=== PATIENT | female | born 1990 | race Asian ===

== ENCOUNTER 2024-04-09 06:25 | Day surgery (SDC) | payer MEDICAID, SELFPAY ==
[2024-04-08 09:44] LABS: Basophils % (Auto) 1 % (0-2.5); Eosinophils # (Auto) 0.2 Thou/mm3 (0.0-0.5); Eosinophils % (Auto) 4 % (0-10); Hematocrit 40.2 % (36.0-46.0); Hemoglobin 13.4 g/dL (12.0-16.0); Immature Granulocytes % (Auto) 0 % (0-0); Immature Granulocytes Auto 0.01 Thou/mm3 (0.00-0.00); Lymphocytes # (Auto) 1.6 Thou/mm3 (1.0-4.8); Lymphocytes % (Auto) 26 % (10-50); Mean Corpuscular HGB Conc 33.3 g/dl (31.0-37.0); Mean Corpuscular Hemoglobin 29.2 pg (25.0-35.0); Mean Corpuscular Volume 88 fL (80-100); Monocytes # (Auto) 0.5 Thou/mm3 (0.0-0.8); Monocytes % (Auto) 9 % (0-12); Neutrophils # (Auto) 3.6 Thou/mm3 (1.8-7.7); Neutrophils % (Auto) 61 % (37-80); Nucleated Red Blood Cell % 0 /100 WBC (0); Platelet Count 283 Thou/mm3 (140-440); RDW Standard Deviation 39.7 fL (36.4-46.3); Red Blood Count 4.59 Miln/mm3 (4.00-5.20)
[2024-04-08 10:10] LABS: Alanine Aminotransferase 14 U/L (10-49); Albumin, Serum 4.6 gm/dL (3.5-5.0); Albumin/Globulin Ratio 1.8 (1.2-2.2); Alkaline Phosphatase 47 U/L (46-116); Anion Gap 7 (7-16); Aspartate Amino Transferase 14 U/L (0-34); BUN/Creatinine Ratio 16 Ratio (12-20); Bilirubin,Total 0.8 mg/dL (0.3-1.2); Blood Urea Nitrogen 11 mg/dL (9-23); Calcium 9.3 mg/dL (8.3-10.6); Calcium (Corrected) 9.3 mg/dL (8.5-10.1); Carbon Dioxide 28.1 mMol/L (20.0-31.0); Chloride 103 mMol/L (98-107); Creatinine (Component) 0.7 mg/dL (0.6-1.3); Globulin 2.6 gm/dL (2.3-3.5); Glucose 110 mg/dL (74-106); Osmolality,Calculated 276 (275-295); Sodium 138 mMol/L (136-145); Total Protein 7.2 gm/dL (5.7-8.2); eGFR > 60 See Note
[2024-04-09] VITALS (10 sets, daily range): BP systolic 108–141; BP diastolic 60–89; PULSE 62–99; RESP 10–20; TEMP 36.3–36.7; O2SAT 96–100; BMI 30.2
[2024-04-09] MEDS: RINGERS LACTATED 1000 ML 1,000 ML 20 ML IV (07:14)
--- NOTE | 2024-04-09 09:35 | ESOP_ITS ---
Date of Procedure 04/09/24 Pre Op Diagnosis Symptomatic cholelithiasis Post Op Diagnosis Cholelithiasis with cholecystitis Procedure Laparoscopic cholecystectomy Findings Moderately distended gallbladder with gallstones and chronic cholecystitis Procedure Description Patient was brought into the operating room in supine position. After adm inistration of general endotracheal anesthesia abdomen was prepped and draped in standard surgical manner. A Veress needle was inserted through the umbilicus and pneumoperitoneum was obtained up to 15 mmHg. The Veress needle was then removed, a 5 mm infraumbilical incision was made and the 5mm trocar was inserted. Laparoscopic camera was placed. Under direct visualization a laparoscopic camera a 10 mm trocar was placed in subxiphoid and two 5 mm trocars placed in right upper quadrant. The gallbladder was identified and was noted to be moderately distended with gallstones and chronic cholecystitis. It was retracted cephalad and laterally. Dissection started near the infundibulum of gallbladder where cystic duct and gallbladder junction clearly identified. The cystic duct was circumferentially dissected off the peritoneum and surrounding inflammatory tissue. The critical view of safety was clearly demonstrated. Cystic duct was then divided between 2 endoclips proximally and one distally. The cystic artery was similarly dissected and divided. The gallbladder was then from the liver bed using electrocautery. The gallbladder was then placed inside an Endo Catch and removed from the abdomen utilizing subxiphoid trocar site. The area was copiously and thoroughly washed and irrigated, all the fluid was suctioned and the suction fluid returned clear. Hemostasis achieved using electrocautery. Endoclips noted be in place and intact without any bleeding or any leakage. Hemostasis was adequate and satisfactory. The subxiphoid trocar sites fascial defect was closed with 0 Vicryl using Endo Closure device. Instruments and trocars removed, pneumoperitoneum was evacuated and the incisions closed with 4-0 Monocryl in subcuticular fashion. Instrument needle and sponge counts were all reported to be correct X2. Patient tolerated the procedure well, was extubated, breathing spontaneously and without difficulty and was transferred to postanesthesia care in stable condition. Anesthesia GETA and local Pathology / specimen Other (Gallbladder and contents) Estimated Blood Loss 10 Condition Stable Disposition PACU Surgeon Alethea Gomez MD Surgical Staff Operation Date: 04/09/24 08:45 Case Staff [employer] SUPERVISOR: Salvador Garsia RN First Assistant: Audrey Melgar
--- NOTE | 2024-04-09 10:04 | SUR.PHASEI ---
0946: Pt received in [facility] via [facility]. Report from Bernadine Burton CRNA, RN. Pt obtunded. Resp even, unlabored. VS stable. Surgical sites x4 to abdomen secured with dermabond and no dressing. Sites dry, clean, intact with no swelling, hematoma.
--- NOTE | 2024-04-09 10:14 | SUR.PHASEI ---
1014: Pt has been resting with no complaints voiced. Resp even, unlabored. VS stable. Surgical sites x4 remain dry, clean, intact with no swelling, hematoma. States she has very little pain.
[2024-04-09] MEDS: ONDANSETRON INJ 2 MG/ML INJ 2 ML 4 MG IV (10:47)
--- NOTE | 2024-04-09 11:26 | SUR.PHASEII ---
1030: Pt awake, alert. Resp even, unlabored. VS stable. Surgical site remains dry, clean, intact with no swelling, hematoma. Denies pain. Sitting up tolerating po fluids with no difficulty swallowing and no n/v. 1047: Pt had c/o nausea. Zofran given per order. 1055: Pt stated nausea subsiding. 1106: Pt fully awake, oriented x3. Pt dressed. Assisted to transport chair. Ambulation steady. Pt and stated understanding of discharge instructions. Pt also instructed to tack picker her prescription at [facility]. Pt discharged from [facility] in stable condition.
== END 2024-04-09 11:06 | disposition home or self-care (01) ==
PROVIDERS: PCP Nurse Practitioner Family; Referring Provider Surgery; Visit Provider Surgery
PROC: 0FT44ZZ Resection of Gallbladder, Percutaneous Endoscopic Approach (ICD-10-PCS; CPT 47562; principal; 2024-04-09 08:30)
DX: K80.10 Calculus of gallbladder with chronic cholecystitis without obstruction (principal)
CPT/HCPCS: 47562; 36415; 80053; 85025; A4217; A4649; J0131; J0694; J1885; J2250; J2405; J2704; J3010; J3490; J7120; J1596

== ENCOUNTER 2024-07-03 10:21 | Outpatient (AMB) | payer MEDICAID, SELFPAY ==
[2024-07-03 10:34] VITALS: BP 111/78; PULSE 86; RESP 18; TEMP 36.6; O2SAT 97; BMI 30.2
--- NOTE | 2024-07-03 10:34 | ACNOTE_ITS ---
Vital Signs 07/03/24 10:34 Height 1.57 m Height Method Stated Weight 74.899 kg Weight Measurement Method Standing Scale BMI 30.2 BP 111/78 Blood Pressure Source Automatic Cuff Blood Pressure Location Left Upper Arm Position Sitting Respiration 18 Pulse 86 Pulse Source Monitor Temp 97.9 F Temp Source Temporal Artery Scan Pulse Oximetry (%) 97 Oxygen Delivery Method Room Air Allergies/Meds Allergies & Medications Allergies No Known Allergies Allergy (Verified 07/03/24 11:14) Medication Reconciliation cetirizine 10 mg capsule (Zyrtec) 10 mg PO QDAY PRN Allergic Symptoms 02/06/23 [History Confirmed 07/03/24] meloxicam 7.5 mg tablet 7.5 mg PO QDAY #45 tabs 03/20/24 [Rx Confirmed 07/03/24] docusate sodium 100 mg capsule (Stool Softener) 100 mg PO QDAY 04/08/24 [History Confirmed 07/03/24] ibuprofen 600 mg tablet 600 mg PO Q6H PRN Pain 04/08/24 [History Confirmed 07/03/24] docusate sodium 100 mg capsule (Colace) 100 mg PO BID #40 caps 04/09/24 [Rx Confirmed 07/03/24] hydrocodone 5 mg-acetaminophen 325 mg tablet 1 tab PO Q6H PRN pain (scale score 7-10) #15 tabs 04/09/24 [Rx Confirmed 07/03/24] ibuprofen 600 mg tablet 600 mg PO Q8H PRN pain (scale score 4-6) #15 tabs 04/09/24 [Rx Confirmed 07/03/24] sulfamethoxazole 800 mg-trimethoprim 160 mg tablet (Bactrim DS) 1 tab PO BID #10 tabs 07/03/24 [Rx Confirmed 07/03/24] MA Intake Visit Data Collection New Patient or Established: Established Patient (seen at [facility] within 3 years) Seen by Clinical Staff ONLY (RN/MA): No Pain Present Currently: No Pain scale:: 0 Pain Scale Used: LantiguaJamshidDelarosa/[employer] Marketer Required: No PCP or OBGYN visit in last 3 months: Yes Hx Now: No Do You Feel Safe at Home: Yes Authorities Contacted: N/A Smoking Status Smoking Status: Never smoker Immunization / Flu Flu Vaccine in the Last 12 Months: No Flu Vaccine Exclusion Criteria: No Exclusion Criteria Past Medical History Past Medical History NEUROLOGIC: Positive Neurological Disorders and Migraine (takes medication otc); Negative Seizures CARDIAC: Negative Cardiac Disorders or Congestive Heart Failure RESPIRATORY: Positive Asthma (stable no medication needed); Negative Chronic Obstructive Pulmonary Disease (COPD) GASTROINTESTINAL: Positive Gastrointestinal Disorders and Gall Bladder Disease; Negative Hepatitis or Colorectal Cancer GENITOURINARY: Positive Genitourinary Disorders (kidney infections left side) and Kidney Stones (2020 passed on own, saw MD no further tx); Negative Renal Disease or Prostate Cancer REPRODUCTIVE: Positive Previous Pregnancies (x4, x3 live births, x1 csection, x2 vaginal births); Negative Breast Cancer, Endometriosis, Pelvic Inflammatory Disease, Testicular Cancer or Uterine Prolapse MUSCULOSKELETAL: Positive Fractures (2011 disslocation of right knee); Negative Bone Cancer or Gout ENDOCRINE: Negative Endocrine Disorders, Diabetes Mellitus Type 1 or Diabetes Mellitus Type 2 HEMATOLOGIC: Negative Blood Disorders or Anemia OTHER HISTORY: Positive Hospitalization (11 yr old dislocated knee); Negative Down Syndrome, Developmental Delay, Shingles, Falls, Blood Transfusions, Blood Transfusion Reaction, Anesthesia Reactions, Organ Transplant, Chemotherapy, Radiation Therapy, Hyperbaric Therapy, MRSA, VRSA, Vancomycin-Resistant Enterococci, Human Immunodeficiency Virus (HIV), Chicken Pox, Measles, Mumps, Rubella (Sami Measles), Pertussis, Clostridium Difficile, Cancer, Breast Cancer, Cervical Cancer, Colorectal Cancer, Lung Cancer, Ovarian Cancer, Prostate Cancer or Testicular Cancer Family History FAMILY HISTORY: Positive Family Cardiac Disorders, Family Cancer and Family Surgery; Negative Family Psychiatric Problems, Family Respiratory Disorders, Family Gastrointestinal Problems or Family Anesthesia Reaction Surgical History SURGICAL: Positive Tubal Ligation and Section; Negative Organ Transplant Social History SMOKING STATUS: Smoking status: Never smoker SECOND HAND EXPOSURE: second hand exposure: No ALCOHOL: Alcohol Intake: Current ALCOHOL FREQUENCY: Alcohol Intake Frequency: holidays/special occasions only HOUSING: Housing: House LIVES WITH: Lives With: Children and Significant Other Travel Risk Travel Hx Recent Travel: No Patient Portal Questionaires PHQ-9 PHQ-2 Over the last 2 weeks, how often have you been bothered by any of the following problems? 1. Little interest or pleasure in doing things: not at all PHQ-9 8. Moving or speaking so slowly that other people could have noticed? - Or the opposite - being so fidgety or restless that you have been moving around a lot more than usual: several days Source: Developed by Lilia OswaldW. Chon, Jason Aiken and colleagues, with an educational whitley from [employer]. Social History Living Situation History Housing: House Tobacco History Smoking Status: Never smoker Second Hand Smoke Exposure: No Alcohol History Alcohol Intake: Current Alcohol Intake Frequency: holidays/special occasions only Substance Use History Substance Use: NONE Domestic Abuse History Do You Feel Safe at Home: Yes Review of Systems Report any current symptoms Only answer those that you have currently: Past Medical History Past Medical History Have you ever been diagnosed with any of the following: Neurological Problems Seizures: No Migraine: Yes (takes medication otc) Cardiology Problems Congestive Heart Failure: No Respiratory Problems Chronic Obstructive Pulmonary Disease (COPD): No Asthma: Yes (stable no medication needed) Stomache/Intestinal Problems Hepatitis: No Gall Bladder Disease: Yes Colorectal Cancer: No Genital/Urinary Problems Renal Disease: No Kidney Stones: Yes (2020 passed on own, saw MD no further tx) Prostate Cancer: No Reproductive Problems Breast Cancer: No Endometriosis: No Pelvic Inflammatory Disease: No Previous Pregnancies: Yes (x4, x3 live births, x1 csection, x2 vaginal births) Testicular Cancer: No Uterine Prolapse: No Musculoskeletal Problems Bone Cancer: No Gout: No Fractures: Yes (2011 disslocation of right knee) Endocrine Problems Diabetes Mellitus Type 1: No Diabetes Mellitus Type 2: No Blood Problems Anemia: No Other Problems Hospitalization: Yes (11 yr old dislocated knee) Down Syndrome: No Developmental Delay: No Shingles: No Falls: No Blood Transfusions: No Blood Transfusion Reaction: No Anesthesia Reactions: No Organ Transplant: No Chemotherapy: No Radiation Therapy: No Hyperbaric Therapy: No MRSA: No VRSA: No Vancomycin-Resistant Enterococci: No Human Immunodeficiency Virus (HIV): No Chicken Pox: No Measles: No Mumps: No Rubella (Sami Measles): No Pertussis: No Clostridium Difficile: No Cancer: No Cervical Cancer: No Lung Cancer: No Ovarian Cancer: No History of Present Illness HPI Narrative The patient is a 33-year-old female, past medical history pertinent for frequent UTIs, 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 Patient denied dysuria, fever, urinary retention or incontinence. Patient reported left flank pain insidious onset which started on the back and radiates to the front, also reported right-sided abdominal discomfort, of note patient has recent cholecystectomy for gallstones causing chronic cholecystitis on 04/09/2024. Mild tenderness on palpation of right upper quadrant, no jaundice or abdominal rigidity on physical exam. 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 Recommended urology consultation follow-up. Patient has a follow-up appointment with urologist in [place], and is pending workup prior to surgery. Past medical history, as noted above Prior surgical history: Laparoscopic salpingectomy in 2021, laparoscopic cholecystectomy 2023. Review of Systems Review of Systems Systems Reviewed: All systems reviewed, normal except as documented Objective/Exam Narrative Physical exam: General: AOx3, cooperative Skin: Intact, no cyanosis or edema noted. HEENT: Atraumatic/normocephalic, FRANCK, neck supple Heart: RRR, S1 and S2 without clicks or murmurs Lungs: Clear on auscultation bilaterally, no difficulty breathing Abdomen: Soft, mild tenderness right upper quadrant. Bowel sounds present . Renal punch is not present. No spinal tenderness on exam. Vascular: Peripheral pulses palpable Neuro: No focal neurological deficits noted. Assessment & Plan Diagnosis / Problem List (1) UTI (urinary tract infection): Status: Acute Assessment & Plan: Given patient has multiple risk factors, ectopic ureter, history of frequent UTIs, and follows with urologist in [place], pending nuclear medical scan and further workup prior to surgical Correction of anomalous ureter. Will proceed with treatment for UTI, we will also get urine analysis with culture Plan: ? Bactrim DS twice daily ? Follow urine culture (2) Right upper quadrant abdominal pain: Status: Acute Assessment & Plan: Patient s/p cholecystectomy, reports mild abdominal discomfort, mild tenderness right upper quadrant, patient reported it is not particularly bothersome at this point, negative Tony sign or abdominal rigidity on physical exam, negative jaundice. Will continue to observe, Tylenol for pain. Plan: ? Tylenol as needed, if symptoms persist please follow-up with general surgery. ? Will get ultrasound abdomen for further evaluation. Orders: Orders US abdomen 07/03/24 R10.11 - Right upper quadrant pain Office Procedures [facility] Level of Care Nursing/Assessment Patient Status: Established Patient Nursing Assessment/Reassessment: Medication Reconciliation, Update PMH in EMR and Vital Signs Coordination of Care: Complex Care and Chronic Disease 1-5, Consent,records obtained, informed consent, Education Simp Pt/Fam, 1 Ins Authorization, Lab and Imaging orders, Ref for ancillary service and Staff clarify orders Established Patient Charge Established Patient Point Assignment: 135 Established Patient Point Charge: EP Level 4 (120-155)
== END 2024-07-03 11:01 | disposition home or self-care (01) ==
LOC: HODAHC 10:21
PROVIDERS: PCP Nurse Practitioner Family; Referring Provider Nurse Practitioner Family; Supervising Provider Student in an Organized Health Care Education/Training Program; Visit Provider Student in an Organized Health Care Education/Training Program
DX: N39.0 Urinary tract infection, site not specified (principal); R10.11 Right upper quadrant pain; Z90.49 Acquired absence of other specified parts of digestive tract
CPT/HCPCS: 99214; G0463

== ENCOUNTER 2024-07-10 10:47 | Outpatient (AMB) | payer MEDICAID, SELFPAY ==
[2024-07-10 10:47] VITALS: BP 99/67; PULSE 68; RESP 18; TEMP 36.3; O2SAT 98; BMI 29.4
--- NOTE | 2024-07-10 10:47 | ACNOTE_ITS ---
Vital Signs 07/10/24 10:47 Height 1.57 m Height Method Stated Weight 73.028 kg Weight Measurement Method Standing Scale BMI 29.4 BP 99/67 Blood Pressure Source Automatic Cuff Blood Pressure Location Left Upper Arm Position Sitting Respiration 18 Pulse 68 Pulse Source Monitor Temp 97.4 F Temp Source Temporal Artery Scan Pulse Oximetry (%) 98 Oxygen Delivery Method Room Air Allergies/Meds Allergies & Medications Allergies No Known Allergies Allergy (Verified 07/10/24 10:49) Medication Reconciliation cetirizine 10 mg capsule (Zyrtec) 10 mg PO QDAY PRN Allergic Symptoms 02/06/23 [History Confirmed 07/10/24] meloxicam 7.5 mg tablet 7.5 mg PO QDAY #45 tabs 03/20/24 [Rx Confirmed 07/10/24] docusate sodium 100 mg capsule (Stool Softener) 100 mg PO QDAY 04/08/24 [History Confirmed 07/10/24] ibuprofen 600 mg tablet 600 mg PO Q6H PRN Pain 04/08/24 [History Confirmed 07/10/24] docusate sodium 100 mg capsule (Colace) 100 mg PO BID #40 caps 04/09/24 [Rx Confirmed 07/10/24] hydrocodone 5 mg-acetaminophen 325 mg tablet 1 tab PO Q6H PRN pain (scale score 7-10) #15 tabs 04/09/24 [Rx Confirmed 07/10/24] ibuprofen 600 mg tablet 600 mg PO Q8H PRN pain (scale score 4-6) #15 tabs 04/09/24 [Rx Confirmed 07/10/24] sulfamethoxazole 800 mg-trimethoprim 160 mg tablet (Bactrim DS) 1 tab PO BID #10 tabs 07/03/24 [Rx Confirmed 07/10/24] MA Intake Visit Data Collection New Patient or Established: Established Patient (seen at [facility] within 3 years) Seen by Clinical Staff ONLY (RN/MA): No Pain Present Currently: No Pain scale:: 0 Pain Scale Used: LantiguaJamshidDelarosa/Numerical Upholsterer Apprentice Required: No PCP or OBGYN visit in last 3 months: Yes Hx Now: No Do You Feel Safe at Home: Yes Authorities Contacted: N/A Smoking Status Smoking Status: Never smoker Immunization / Flu Flu Vaccine in the Last 12 Months: No Flu Vaccine Exclusion Criteria: No Exclusion Criteria Past Medical History Past Medical History NEUROLOGIC: Positive Neurological Disorders and Migraine (takes medication otc); Negative Seizures CARDIAC: Negative Cardiac Disorders or Congestive Heart Failure RESPIRATORY: Positive Asthma (stable no medication needed); Negative Chronic Obstructive Pulmonary Disease (COPD) GASTROINTESTINAL: Positive Gastrointestinal Disorders and Gall Bladder Disease; Negative Hepatitis or Colorectal Cancer GENITOURINARY: Positive Genitourinary Disorders (kidney infections left side) and Kidney Stones (2020 passed on own, saw MD no further tx); Negative Renal Disease or Prostate Cancer REPRODUCTIVE: Positive Previous Pregnancies (x4, x3 live births, x1 csection, x2 vaginal births); Negative Breast Cancer, Endometriosis, Pelvic Inflammatory Disease, Testicular Cancer or Uterine Prolapse MUSCULOSKELETAL: Positive Fractures (2011 disslocation of right knee); Negative Bone Cancer or Gout ENDOCRINE: Negative Endocrine Disorders, Diabetes Mellitus Type 1 or Diabetes Mellitus Type 2 HEMATOLOGIC: Negative Blood Disorders or Anemia OTHER HISTORY: Positive Hospitalization (11 yr old dislocated knee); Negative Down Syndrome, Developmental Delay, Shingles, Falls, Blood Transfusions, Blood Transfusion Reaction, Anesthesia Reactions, Organ Transplant, Chemotherapy, Radiation Therapy, Hyperbaric Therapy, MRSA, VRSA, Vancomycin-Resistant Enterococci, Human Immunodeficiency Virus (HIV), Chicken Pox, Measles, Mumps, Rubella (Swedish Measles), Pertussis, Clostridium Difficile, Cancer, Breast Cancer, Cervical Cancer, Colorectal Cancer, Lung Cancer, Ovarian Cancer, Prostate Cancer or Testicular Cancer Family History FAMILY HISTORY: Positive Family Cardiac Disorders, Family Cancer and Family Surgery; Negative Family Psychiatric Problems, Family Respiratory Disorders, Family Gastrointestinal Problems or Family Anesthesia Reaction Surgical History SURGICAL: Positive Tubal Ligation and Section; Negative Organ Transplant Social History SMOKING STATUS: Smoking status: Never smoker SECOND HAND EXPOSURE: second hand exposure: No ALCOHOL: Alcohol Intake: Current ALCOHOL FREQUENCY: Alcohol Intake Frequency: holidays/special occasions only HOUSING: Housing: House LIVES WITH: Lives With: Children and Significant Other Patient Portal Questionaires PHQ-9 PHQ-2 Over the last 2 weeks, how often have you been bothered by any of the following problems? 1. Little interest or pleasure in doing things: not at all PHQ-9 8. Moving or speaking so slowly that other people could have noticed? - Or the opposite - being so fidgety or restless that you have been moving around a lot more than usual: several days Source: Developed by Drs. Roderick Seaman, Lilia BJason Valadez and colleagues, with an educational whitley from [employer]. Social History Living Situation History Housing: House Tobacco History Smoking Status: Never smoker Second Hand Smoke Exposure: No Alcohol History Alcohol Intake: Current Alcohol Intake Frequency: holidays/special occasions only Substance Use History Substance Use: NONE Domestic Abuse History Do You Feel Safe at Home: Yes Review of Systems Report any current symptoms Only answer those that you have currently: Past Medical History Past Medical History Have you ever been diagnosed with any of the following: Neurological Problems Seizures: No Migraine: Yes (takes medication otc) Cardiology Problems Congestive Heart Failure: No Respiratory Problems Chronic Obstructive Pulmonary Disease (COPD): No Asthma: Yes (stable no medication needed) Stomache/Intestinal Problems Hepatitis: No Gall Bladder Disease: Yes Colorectal Cancer: No Genital/Urinary Problems Renal Disease: No Kidney Stones: Yes (2020 passed on own, saw MD no further tx) Prostate Cancer: No Reproductive Problems Breast Cancer: No Endometriosis: No Pelvic Inflammatory Disease: No Previous Pregnancies: Yes (x4, x3 live births, x1 csection, x2 vaginal births) Testicular Cancer: No Uterine Prolapse: No Musculoskeletal Problems Bone Cancer: No Gout: No Fractures: Yes (2011 disslocation of right knee) Endocrine Problems Diabetes Mellitus Type 1: No Diabetes Mellitus Type 2: No Blood Problems Anemia: No Other Problems Hospitalization: Yes (11 yr old dislocated knee) Down Syndrome: No Developmental Delay: No Shingles: No Falls: No Blood Transfusions: No Blood Transfusion Reaction: No Anesthesia Reactions: No Organ Transplant: No Chemotherapy: No Radiation Therapy: No Hyperbaric Therapy: No MRSA: No VRSA: No Vancomycin-Resistant Enterococci: No Human Immunodeficiency Virus (HIV): No Chicken Pox: No Measles: No Mumps: No Rubella (Swedish Measles): No Pertussis: No Clostridium Difficile: No Cancer: No Cervical Cancer: No Lung Cancer: No Ovarian Cancer: No History of Present Illness HPI Narrative The patient is a 33-year-old female, past medical history pertinent for frequent UTIs, 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 Patient denied dysuria, fever, urinary retention or incontinence. Patient reported left flank pain insidious onset which started on the back and radiates to the front, also reported right-sided abdominal discomfort, of note patient has recent cholecystectomy for gallstones causing chronic cholecystitis on 04/09/2024. Mild tenderness on palpation of right upper quadrant, no jaundice or abdominal rigidity on physical exam. 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 Recommended urology consultation follow-up. Patient has a follow-up appointment with urologist in [place], and is pending workup prior to surgery. 07/10/2024 the patient was seen for follow-up, following treatment for UTI. Patient is asymptomatic on follow-up visit, no pain or tenderness or dysuria reported. Afebrile. No right upper quadrant pain or tenderness on physical exam, no need for additional imaging at present. The patient is pending a follow-up appointment with urologist in [place] within the next month for surgical correction of ectopic ureter. Review of Systems Review of Systems Systems Reviewed: All systems reviewed, normal except as documented Objective/Exam Narrative Physical exam: General: AOx3, cooperative Skin: Intact, no cyanosis or edema noted. HEENT: Atraumatic/normocephalic, FRANCK, neck supple Heart: RRR, S1 and S2 without clicks or murmurs Lungs: Clear on auscultation bilaterally, no difficulty breathing Abdomen: Soft, nontender nondistended abdomen, negative RUQ tenderness Vascular: Peripheral pulses palpable Neuro: No focal neurological deficits noted. Assessment & Plan Diagnosis / Problem List (1) UTI (urinary tract infection): Status: Resolved Qualifiers: Urinary tract infection type: acute cystitis Hematuria presence: without hematuria Qualified Code(s): N30.00 - Acute cystitis without hematuria Assessment & Plan: Given patient has multiple risk factors, ectopic ureter, history of frequent UTIs, and follows with urologist in [place], pending nuclear medical scan and further workup prior to surgical Correction of anomalous ureter. Will proceed with treatment for UTI, we will also get urine analysis with culture Plan: Pending follow-up appointment with urologist in [place] for surgical correction of ectopic ureter. (2) Right upper quadrant abdominal pain: Status: Resolved Assessment & Plan: Patient s/p cholecystectomy, reports mild abdominal discomfort, mild tenderness right upper quadrant, patient reported it is not particularly bothersome at this point, negative Tony sign or abdominal rigidity on physical exam, negative jaundice. Will continue to observe, Tylenol for pain. Plan: ? Tylenol as needed, if symptoms persist please follow-up with general surgery. ? No additional imaging required at present, as patient is asymptomatic on follow-up visits, physical exam unremarkable. No evidence of surgical site infection. Office Procedures [facility] Level of Care Nursing/Assessment Patient Status: Established Patient Nursing Assessment/Reassessment: Medication Reconciliation, Update PMH in EMR and Vital Signs Coordination of Care: Complex Care and Chronic Disease 1-5, Consent,records obtained, informed consent, Education Simp Pt/Fam and Staff clarify orders Established Patient Charge Established Patient Point Assignment: 85 Established Patient Point Charge: EP Level 3 (80-115)
== END 2024-07-10 11:04 | disposition home or self-care (01) ==
LOC: HODAHC 10:47
PROVIDERS: PCP Nurse Practitioner Family; Referring Provider Nurse Practitioner Family; Supervising Provider Internal Medicine; Visit Provider Student in an Organized Health Care Education/Training Program
DX: Z09 Encounter for follow-up examination after completed treatment for conditions other than malignant neoplasm (principal); Z87.440 Personal history of urinary (tract) infections; Z90.49 Acquired absence of other specified parts of digestive tract; Q62.63 Anomalous implantation of ureter
CPT/HCPCS: 99213; G0463

== ENCOUNTER → 2024-08-06 | Outpatient (CLI) | payer MEDICAID, SELFPAY ==
--- NOTE | 2024-08-06 10:30 | XR_ITS ---
Examination: Abdomen sonogram, complete Date and time of exam: August 06, 2024 0833 hours INDICATIONS: Onset right upper abdominal pain beginning 3 days ago. Technique: Multiple real-time grayscale transabdominal sonographic images of the abdomen have been obtained. Findings: Absent gallbladder Normal common bile duct 0.5 cm Pancreatic head 1.9 cm Aorta not enlarged. Liver 14.7 cm fatty infiltration Normal hepatopedal portal venous flow Patent IVC Right kidney 10.1 cm renal cortex 1.6 cm 7 mm midpole calculus Left kidney 9.7 cm renal cortex 1.7 cm Spleen 8.6 cm IMPRESSION: Normal common bile duct. Fatty liver. 7 mm nonobstructing right renal calculus
== END | disposition home or self-care (01) ==
LOC: CDIM 08:23
PROVIDERS: PCP Nurse Practitioner Family; Referring Provider Student in an Organized Health Care Education/Training Program; Visit Provider Student in an Organized Health Care Education/Training Program
DX: K76.0 Fatty (change of) liver, not elsewhere classified (principal); N20.0 Calculus of kidney
CPT/HCPCS: 76700

== ENCOUNTER 2024-08-26 09:33 | Outpatient (AMB) | payer MEDICAID, SELFPAY ==
[2024-08-26 09:36] VITALS: BP 128/93; PULSE 86; RESP 18; TEMP 36.8; O2SAT 99; BMI 29.5
--- NOTE | 2024-08-26 09:36 | ACNOTE_ITS ---
Vital Signs 08/26/24 09:36 Height 1.57 m Height Method Stated Weight 72.631 kg Weight Measurement Method Standing Scale BMI 29.5 BP 128/93 H Blood Pressure Source Automatic Cuff Blood Pressure Location Right Upper Arm Position Sitting Respiration 18 Pulse 86 Pulse Source Monitor Temp 98.2 F Temp Source Temporal Artery Scan Pulse Oximetry (%) 99 Oxygen Delivery Method Room Air Allergies/Meds Allergies & Medications Allergies No Known Allergies Allergy (Verified 08/26/24 09:37) Medication Reconciliation cetirizine 10 mg capsule (Zyrtec) 10 mg PO QDAY PRN Allergic Symptoms 02/06/23 [ History Confirmed 08/26/24] docusate sodium 100 mg capsule (Stool Softener) 100 mg PO QDAY 04/08/24 [History Confirmed 08/26/24] docusate sodium 100 mg capsule (Colace) 100 mg PO BID #40 caps 04/09/24 [Rx Confirmed 08/26/24] hydrocodone 5 mg-acetaminophen 325 mg tablet 1 tab PO Q6H PRN pain (scale score 7-10) #15 tabs 04/09/24 [Rx Confirmed 08/26/24] sulfamethoxazole 800 mg-trimethoprim 160 mg tablet (Bactrim DS) 1 tab PO BID #10 tabs 07/03/24 [Rx Confirmed 08/26/24] meloxicam 7.5 mg tablet 7.5 mg PO BID 30 days #60 tabs 08/26/24 [Rx] metaxalone 800 mg tablet 800 mg PO TID 30 days #90 tabs 08/26/24 [Rx] MA Intake Visit Data Collection New Patient or Established: Established Patient (seen at [facility] within 3 years) Seen by Clinical Staff ONLY (RN/MA): No Pain Present Currently: No Pain scale:: 0 Pain Scale Used: Lantigua-Delarosa/Numerical Hasher Operator Required: No PCP or OBGYN visit in last 3 months: No Hx Now: No Do You Feel Safe at Home: Yes Authorities Contacted: N/A Smoking Status Smoking Status: Never smoker Immunization / Flu Flu Vaccine in the Last 12 Months: No Flu Vaccine Exclusion Criteria: No Exclusion Criteria Past Medical History Past Medical History NEUROLOGIC: Positive Neurological Disorders and Migraine (takes medication otc); Negative Seizures CARDIAC: Negative Cardiac Disorders or Congestive Heart Failure RESPIRATORY: Positive Asthma (stable no medication needed); Negative Chronic Obstructive Pulmonary Disease (COPD) GASTROINTESTINAL: Positive Gastrointestinal Disorders and Gall Bladder Disease; Negative Hepatitis or Colorectal Cancer GENITOURINARY: Positive Genitourinary Disorders (kidney infections left side) and Kidney Stones (2020 passed on own, saw MD no further tx); Negative Renal Disease or Prostate Cancer REPRODUCTIVE: Positive Previous Pregnancies (x4, x3 live births, x1 csection, x2 vaginal births); Negative Breast Cancer, Endometriosis, Pelvic Inflammatory Disease, Testicular Cancer or Uterine Prolapse MUSCULOSKELETAL: Positive Fractures (2011 disslocation of right knee); Negative Bone Cancer or Gout ENDOCRINE: Negative Endocrine Disorders, Diabetes Mellitus Type 1 or Diabetes Mellitus Type 2 HEMATOLOGIC: Negative Blood Disorders or Anemia OTHER HISTORY: Positive Hospitalization (11 yr old dislocated knee); Negative Down Syndrome, Developmental Delay, Shingles, Falls, Blood Transfusions, Blood Transfusion Reaction, Anesthesia Reactions, Organ Transplant, Chemotherapy, Radiation Therapy, Hyperbaric Therapy, MRSA, VRSA, Vancomycin-Resistant Enterococci, Human Immunodeficiency Virus (HIV), Chicken Pox, Measles, Mumps, Rubella (Bahraini Measles), Pertussis, Clostridium Difficile, Cancer, Breast Cancer, Cervical Cancer, Colorectal Cancer, Lung Cancer, Ovarian Cancer, Prostate Cancer or Testicular Cancer Family History FAMILY HISTORY: Positive Family Cardiac Disorders, Family Cancer and Family Surgery; Negative Family Psychiatric Problems, Family Respiratory Disorders, Family Gastrointestinal Problems or Family Anesthesia Reaction Surgical History SURGICAL: Positive Tubal Ligation and Section; Negative Organ Transplant Social History SMOKING STATUS: Smoking status: Never smoker SECOND HAND EXPOSURE: second hand exposure: No ALCOHOL: Alcohol Intake: Current ALCOHOL FREQUENCY: Alcohol Intake Frequency: holidays/special occasions only HOUSING: Housing: House LIVES WITH: Lives With: Children and Significant Other Patient Portal Questionaires PHQ-9 PHQ-2 Over the last 2 weeks, how often have you been bothered by any of the following problems? 1. Little interest or pleasure in doing things: not at all PHQ-9 8. Moving or speaking so slowly that other people could have noticed? - Or the opposite - being so fidgety or restless that you have been moving around a lot more than usual: several days Source: Developed by Drs. Roderick Seaman, Lilia Givens, Jason Aiken and colleagues, with an educational whitley from [employer]. Social History Living Situation History Housing: House Tobacco History Smoking Status: Never smoker Second Hand Smoke Exposure: No Alcohol History Alcohol Intake: Current Alcohol Intake Frequency: holidays/special occasions only Substance Use History Substance Use: NONE Domestic Abuse History Do You Feel Safe at Home: Yes Review of Systems Report any current symptoms Only answer those that you have currently: Past Medical History Past Medical History Have you ever been diagnosed with any of the following: Neurological Problems Seizures: No Migraine: Yes (takes medication otc) Cardiology Problems Congestive Heart Failure: No Respiratory Problems Chronic Obstructive Pulmonary Disease (COPD): No Asthma: Yes (stable no medication needed) Stomache/Intestinal Problems Hepatitis: No Gall Bladder Disease: Yes Colorectal Cancer: No Genital/Urinary Problems Renal Disease: No Kidney Stones: Yes (2020 passed on own, saw no further tx) Reproductive Problems Breast Cancer: No Endometriosis: No Pelvic Inflammatory Disease: No Previous Pregnancies: Yes (x4, x3 live births, x1 csection, x2 vaginal births) Uterine Prolapse: No Musculoskeletal Problems Bone Cancer: No Gout: No Fractures: Yes (2011 disslocation of right knee) Endocrine Problems Diabetes Mellitus Type 1: No Diabetes Mellitus Type 2: No Blood Problems Anemia: No Other Problems Hospitalization: Yes (11 yr old dislocated knee) Down Syndrome: No Developmental Delay: No Shingles: No Falls: No Blood Transfusions: No Blood Transfusion Reaction: No Anesthesia Reactions: No Organ Transplant: No Chemotherapy: No Radiation Therapy: No Hyperbaric Therapy: No MRSA: No VRSA: No Vancomycin-Resistant Enterococci: No Human Immunodeficiency Virus (HIV): No Chicken Pox: No Measles: No Mumps: No Rubella (Bahraini Measles): No Pertussis: No Clostridium Difficile: No Cancer: No Cervical Cancer: No Lung Cancer: No Ovarian Cancer: No History of Present Illness HPI Narrative The patient is a 33-year-old female, past medical history pertinent for frequent UTIs, 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 Patient denied dysuria, fever, urinary retention or incontinence. Patient reported left flank pain insidious onset which started on the back and radiates to the front, also reported right-sided abdominal discomfort, of note patient has recent cholecystectomy for gallstones causing chronic cholecystitis on 04/09/2024. Mild tenderness on palpation of right upper quadrant, no jaundice or abdominal rigidity on physical exam. 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 Recommended urology consultation follow-up. Patient is scheduled with a urologist in [place] in September 2024. 08/26/2024: Patient presented with office with a chief complaint of neck pain with mild tenderness surrounding the cervical occipital region and radiating d own bilaterally to the trapezius muscles. Patient stated neck pain began on Saturday and first noticed after waking up, patient believes she might of slept on her neck wrong. Patient denied any trauma or blunt force injury. Patient denied any upper extremity weakness or paresthesias. Patient denied any proptosis or blurry vision. Patient denied history of scoliosis. Patient denied history of fibromyalgia. Review of Systems Review of Systems Narrative Review of Systems: General appearance: NO weight change, NO fatigue, NO weakness, NO fever, NO chills, NO night sweats, No cough Skin: NO rash, NO itching, NO sores, NO moles HEENT: NO Trauma, NO nausea, NO vomiting, NO visual changes, NO blurry vision, NO double vision, NO tinnitus, NO vertigo, NO ear discharge, NO rhinorrhea, NO stuffiness, NO sneezing, NO allergy, NO epistaxis. NO Hoarseness, NO sore throat, NO swollen neck. Cardiac: NO Palpitations, NO dyspnea on exertion, NO orthopnea, NO paroxysmal nocturnal dyspnea, NO edema Respiratory: NO Shortness of Breath, NO Wheezing, NO Cough, NO Sputum, NO hemoptysis GI:NO appetite, NO nausea, NO vomiting, NO dysphagia, NO changes in bowel frequency, NO stool color, NO diarrhea, NO constipation, NO hemetemesis, NO hemorrhoids, NO melena, NO hematechezia, NO abdominal pain, NO jaundice Renal: NO frequency, NO hesitancy, NO urgency, NO hematuria, NO nocturia, NO incontinence MSK: NO muscle weakness, NO gout, NO arthritis, NO muscle stiffness Neuro: NO headaches, NO tremors, NO weakness, NO paralysis, NO seizures, NO loss of consciousness, NO numbness. Neck tenderness and pain. Hem: NO anemia, NO easy bruising/bleeding, NO petechiae, NO purpura Endo: NO heat/cold intolerance, NO excessive sweating, NO polyuria, NO polydipsia, NO polyphagia, NO thyroid problems, NO diabetes Pysch: NO mood, NO anxiety, NO depression Objective/Exam Narrative Physical exam: General Appearance: Alert and Orientated x3, well-nourished female who is sitting on exam room with in mild discomfort secondary to neck pain. No rash noted. Thorax/Lungs: Symmetrical with good expansion. Chest and back non-tender. Lungs resonant to percussion. Breath sounds vesicular without crackles, wheezes, or rhonchi Cardiovascular/Peripheral Vascular: No jugular venous distention noted. S1 and S2 heart sounds regular, no murmurs or extra heart sounds auscultated. No peripheral edema noted. Neuro: Upper strength 5 out of 5, equal and bilateral. No drift noted. Resistive strength normal. No paresthesias. Abdomen: Bowel sounds are active. No tenderness to deep or light palpation. Assessment & Plan Diagnosis / Problem List (1) Muscle strain: Status: Acute Assessment & Plan: Cervical neck pain likely secondary to neck strain as there is no paresthesias or neurological deficits noted on physical exam. Less likely secondary to autoimmune disorder such as myasthenia gravis or polymyositis, as patient has never experienced this before and there is no history of upper motor weakness. Likely secondary to cervical spine fracture no abnormalities were noted on cervical spine exam. Patient is being sent home with meloxicam and metaxalone. Please follow-up with cervical spine x-ray. Plan: -Cervical x-ray -Meloxicam -Metaxalone (2) UTI (urinary tract infection): Status: Resolved Qualifiers: Hematuria presence: without hematuria Urinary tract infection type: acute cystitis Qualified Code(s): N30.00 - Acute cystitis without hematuria Assessment & Plan: Given patient has multiple risk factors, ectopic ureter, history of frequent UTIs, and follows with urologist in [place], pending nuclear medical scan and further workup prior to surgical Correction of anomalous ureter. Patient completed treatment with antibiotics and deneid any new symptoms. Plan: September 2024 urologist appoitment in [place] for surgical correction of ectopic ureter. Additional Assessment - The patient's plan was discussed with attending Dr. Jung Bach MD PGY1 Internal Medicine Internal Medicine Attending Note: Case discussed with and agree with note and management plan of Resident Physician as per Resident's Note above. Issues of concern for present visit are as follows: Acute visit with neck pain. Range of motion intact. No radicular symptoms. Muscle spasm of the trapezius muscles noted bilaterally. Inciting cause not clear. We will check a C-spine x-ray just to ensure there is no spondylolisthesis or spondylosis. Conservative treatment with NSAID and muscle relaxer. No current UTI symptoms, awaiting further treatment with her urologist for anomalous ureter. Luis Fernando Feng MD Physician Billing Established Patient Established Patient: E/M Level 3-CPT [address] [facility] Level of Care Nursing/Assessment Patient Status: Established Patient Nursing Assessment/Reassessment: Medication Reconciliation, Update PMH in EMR and Vital Signs Coordination of Care: Complex Care and Chronic Disease 1-5, Consent,records ob tained, informed consent, Education Simp Pt/Fam, Lab and Imaging orders and Staff clarify orders Established Patient Charge Established Patient Point Assignment: 100 Established Patient Point Charge: EP Level 3 (80-115)
== END 2024-08-26 10:35 | disposition home or self-care (01) ==
LOC: HODAHC 09:33
PROVIDERS: PCP Nurse Practitioner Family; Referring Provider Nurse Practitioner Family; Supervising Provider Internal Medicine
DX: S16.1XXA Strain of muscle, fascia and tendon at neck level, initial encounter (principal); X58.XXXA Exposure to other specified factors, initial encounter; Z87.440 Personal history of urinary (tract) infections
CPT/HCPCS: 99213; G0463

== ENCOUNTER → 2024-08-26 | Outpatient (CLI) | payer MEDICAID, SELFPAY ==
--- NOTE | 2024-08-26 11:05 | XR_ITS ---
Examination: Cervical spine 3 views Exam date and time: August 26, 2024 1119 TECHNIQUE: AP lateral coned AP odontoid cervical spine 3 views INDICATIONS: Neck pain 3 days. FINDINGS: Reversal normal cervical lordosis No cervical fracture Intact odontoid No cervical disc narrowing IMPRESSION: No cervical fracture or cervical disc narrowing
== END | disposition home or self-care (01) ==
LOC: CDIM 10:53
PROVIDERS: PCP Nurse Practitioner Family
DX: M43.13 Spondylolisthesis, cervicothoracic region (principal)
CPT/HCPCS: 72040

== ENCOUNTER 2024-11-20 09:32 | Outpatient (AMB) | payer MEDICAID, SELFPAY ==
[2024-11-20 09:41] VITALS: BP 108/76; PULSE 68; RESP 18; TEMP 36.8; O2SAT 98; BMI 29.5
--- NOTE | 2024-11-20 09:41 | ACNOTE_ITS ---
Vital Signs 11/20/24 09:41 Height 1.57 m Height Method Stated Weight 72.631 kg Weight Measurement Method Standing Scale BMI 29.5 BP 108/76 Blood Pressure Source Automatic Cuff Blood Pressure Location Right Upper Arm Position Sitting Respiration 18 Pulse 68 Pulse Source Monitor Temp 98.3 F Temp Source Temporal Artery Scan Pulse Oximetry (%) 98 Oxygen Delivery Method Room Air Allergies/Meds Allergies & Medications Allergies No Known Allergies Allergy (Verified 11/20/24 09:41) Medication Reconciliation cetirizine 10 mg capsule (Zyrtec) 10 mg PO QDAY PRN Allergic Symptoms 02/06/23 [History Confirmed 11/20/24] docusate sodium 100 mg capsule (Stool Softener) 100 mg PO QDAY 04/08/24 [History Confirmed 11/20/24] docusate sodium 100 mg capsule (Colace) 100 mg PO BID #40 caps 04/09/24 [Rx Confirmed 11/20/24] hydrocodone 5 mg-acetaminophen 325 mg tablet 1 tab PO Q6H PRN pain (scale score 7-10) #15 tabs 04/09/24 [Rx Confirmed 11/20/24] sulfamethoxazole 800 mg-trimethoprim 160 mg tablet (Bactrim DS) 1 tab PO BID #10 tabs 07/03/24 [Rx Confirmed 11/20/24] meloxicam 7.5 mg tablet 7.5 mg PO BID 30 days #60 tabs 08/26/24 [Rx Confirmed 11/20/24] hydrocodone 5 mg-acetaminophen 325 mg tablet 1 tab PO Q8H PRN pain #20 tabs 11/20/24 [Rx] MA Intake Visit Data Collection New Patient or Established: Established Patient (seen at [facility] within 3 years) Seen by Clinical Staff ONLY (RN/MA): No Pain Present Currently: No Pain Scale Used: Lantigua-Delarosa/Numerical Buggy Ladle Tender Required: No PCP or OBGYN visit in last 3 months: No Hx Now: No Do You Feel Safe at Home: Yes Authorities Contacted: N/A Smoking Status Smoking Status: Never smoker Immunization / Flu Flu Vaccine in the Last 12 Months: No Flu Vaccine Exclusion Criteria: No Exclusion Criteria Past Medical History Past Medical History NEUROLOGIC: Positive Neurological Disorders and Migraine (takes medication otc); Negative Seizures CARDIAC: Negative Cardiac Disorders or Congestive Heart Failure RESPIRATORY: Positive Asthma (stable no medication needed); Negative Chronic Obstructive Pulmonary Disease (COPD) GASTROINTESTINAL: Positive Gastrointestinal Disorders and Gall Bladder Disease; Negative Hepatitis or Colorectal Cancer GENITOURINARY: Positive Genitourinary Disorders (kidney infections left side) and Kidney Stones (2020 passed on own, saw MD no further tx); Negative Renal Disease or Prostate Cancer REPRODUCTIVE: Positive Previous Pregnancies (x4, x3 live births, x1 csection, x2 vaginal births); Negative Breast Cancer, Endometriosis, Pelvic Inflammatory Disease, Testicular Cancer or Uterine Prolapse MUSCULOSKELETAL: Positive Fractures (2011 disslocation of right knee); Negative Bone Cancer or Gout ENDOCRINE: Negative Endocrine Disorders, Diabetes Mellitus Type 1 or Diabetes Mellitus Type 2 HEMATOLOGIC: Negative Blood Disorders or Anemia OTHER HISTORY: Positive Hospitalization (11 yr old dislocated knee); Negative Down Syndrome, Developmental Delay, Shingles, Falls, Blood Transfusions, Blood Transfusion Reaction, Anesthesia Reactions, Organ Transplant, Chemotherapy, Radiation Therapy, Hyperbaric Therapy, MRSA, VRSA, Vancomycin-Resistant Enterococci, Human Immunodeficiency Virus (HIV), Chicken Pox, Measles, Mumps, Rubella (Singaporean Measles), Pertussis, Clostridium Difficile, Cancer, Breast Cancer, Cervical Cancer, Colorectal Cancer, Lung Cancer, Ovarian Cancer, Prostate Cancer or Testicular Cancer Family History FAMILY HISTORY: Positive Family Cardiac Disorders, Family Cancer and Family Surgery; Negative Family Psychiatric Problems, Family Respiratory Disorders, Family Gastrointestinal Problems or Family Anesthesia Reaction Surgical History SURGICAL: Positive Tubal Ligation and Section; Negative Organ Transplant Social History SMOKING STATUS: Smoking status: Never smoker SECOND HAND EXPOSURE: second hand exposure: No ALCOHOL: Alcohol Intake: Current ALCOHOL FREQUENCY: Alcohol Intake Frequency: holidays/special occasions only HOUSING: Housing: House LIVES WITH: Lives With: Children and Significant Other Patient Portal Questionaires PHQ-9 PHQ-2 Over the last 2 weeks, how often have you been bothered by any of the following problems? 1. Little interest or pleasure in doing things: not at all PHQ-9 8. Moving or speaking so slowly that other people could have noticed? - Or the opposite - being so fidgety or restless that you have been moving around a lot more than usual: several days Source: Developed by Drs. oRderick Seaman, Lilia Givens, Jason Aiken and colleagues, with an educational whitley from [employer]. Social History Living Situation History Housing: House Tobacco History Smoking Status: Never smoker Second Hand Smoke Exposure: No Alcohol History Alcohol Intake: Current Alcohol Intake Frequency: holidays/special occasions only Substance Use History Substance Use: NONE Domestic Abuse History Do You Feel Safe at Home: Yes Review of Systems Report any current symptoms Only answer those that you have currently: Past Medical History Past Medical History Have you ever been diagnosed with any of the following: Neurological Problems Seizures: No Migraine: Yes (takes medication otc) Cardiology Problems Congestive Heart Failure: No Respiratory Problems Chronic Obstructive Pulmonary Disease (COPD): No Asthma: Yes (stable no medication needed) Stomache/Intestinal Problems Hepatitis: No Gall Bladder Disease: Yes Colorectal Cancer: No Genital/Urinary Problems Renal Disease: No Kidney Stones: Yes (2020 passed on own, saw MD no further tx) Reproductive Problems Breast Cancer: No Endometriosis: No Pelvic Inflammatory Disease: No Previous Pregnancies: Yes (x4, x3 live births, x1 csection, x2 vaginal births) Uterine Prolapse: No Musculoskeletal Problems Bone Cancer: No Gout: No Fractures: Yes (2011 disslocation of right knee) Endocrine Problems Diabetes Mellitus Type 1: No Diabetes Mellitus Type 2: No Blood Problems Anemia: No Other Problems Hospitalization: Yes (11 yr old dislocated knee) Down Syndrome: No Developmental Delay: No Shingles: No Falls: No Blood Transfusions: No Blood Transfusion Reaction: No Anesthesia Reactions: No Organ Transplant: No Chemotherapy: No Radiation Therapy: No Hyperbaric Therapy: No MRSA: No VRSA: No Vancomycin-Resistant Enterococci: No Human Immunodeficiency Virus (HIV): No Chicken Pox: No Measles: No Mumps: No Rubella (Singaporean Measles): No Pertussis: No Clostridium Difficile: No Cancer: No Cervical Cancer: No Lung Cancer: No Ovarian Cancer: No History of Present Illness HPI Narrative Ying Stevens is a 33-year-old female with a past medical history of 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 Garg, at [facility]), history of frequent UTIs, right-sided 7 mm midpole nonobstructing calculus who presents to [facility] for right sided flank/pelvic pain. She describes the pain as pulsatile, 8/10 in intensity, with associated nausea and vomiting but no fever or chills. Had an abdominal ultrasound on August 2024 that showed 7 mm nonobstructing right renal calculus and the pain at that time was in same location. Also denies any dysuria, hematuria, foul-smelling urine, but does endorse urinary frequency. Had first appointment with urology in [place] and will have upcoming appointment on 11/25/2024 to discuss surgical options regarding anomalous ureter and patient recently informed them of her stone. 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 At this time, will order renal ultrasound to further evaluate right-sided discomfort and progression of 7 mm obstructing stone seen in August. Will also order baseline BMP as she takes ibuprofen for pain at least once a day given that she has bilateral neurological conditions. Advised to hold ibuprofen until BMP results are and then if creatinine within normal limits then can resume. In the meantime, will prescribed [place] 5 for discomfort. Follow-up as needed and strict ED precatuions if she develops fever, chills, or decreased urine output. Review of Systems Review of Systems Systems Reviewed: All systems reviewed, normal except as documented Objective/Exam Narrative Physical exam: General: AOx3, no acute distress, able to speak full sentences HEENT: NC/AT, mucous membranes moist, bilateral sclera anicteric Cardiovascular: regular rate and rhythm, S1/S2 present, no murmurs appreciated Pulmonary: clear to auscultation bilaterally, no rales/rhonchi/wheezes Abdominal: tenderness in right lower quadrant, soft, non-distended, no rebound/guarding, normal bowel sounds present Musculoskeletal: normal ROM, no peripheral edema Skin: warm and dry, intact, no rashes Neuro: CN II-XII intact, no focal deficits Assessment & Plan Diagnosis / Problem List (1) Nephrolithiasis: Status: Acute Assessment & Plan: Presents with worsening right-sided abdominal/flank discomfort that reaches 8/10 in intensity and associated with N/V but no fever or chills. US on 08/2024 showed a 7 mm nonobstructing renal calculus and will order repeat US to further evaluate progression. Will also order BMP to evaluate renal function in setting of ibuprofen use for pain management and in meantime will prescribe [place] 5. Plan: ? Follow-up ultrasound ? BMP ordered to evaluate renal function/creatinine ? [place] 5 for pain ? Follow-up as needed ? Strict ED precautions (2) Urologic anomaly: Status: Acute Assessment & Plan: Established care with urologist, Dr. Garg, at [facility] in [place] and has follow-up appoitment on 11/25/2024. 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 Plan: ? Follow-up with urology at [facility] Orders: Orders Basic Metabolic Panel Today N20.0 - Calculus of kidney US abdomen limited Today N20.0 - Calculus of kidney Office Procedures [facility] Level of Care Nursing/Assessment Patient Status: Established Patient Nursing Assessment/Reassessment: Medication Reconciliation, Update PMH in EMR and Vital Signs Coordination of Care: Complex Care and Chronic Disease 1-5, Consent,records obtained, informed consent, Education Simp Pt/Fam, 1 Ins Authorization, Lab and Imaging orders and Staff clarify orders Established Patient Charge Established Patient Point Assignment: 115 Established Patient Point Charge: Level 3 (80-115)
== END 2024-11-20 10:16 | disposition home or self-care (01) ==
LOC: HODAHC 09:32
PROVIDERS: PCP Nurse Practitioner Family; Referring Provider Nurse Practitioner Family
DX: N20.0 Calculus of kidney (principal); Q62.8 Other congenital malformations of ureter
CPT/HCPCS: 99213; G0463

== ENCOUNTER 2025-03-09 12:08 | Emergency (ER) | payer MEDICAID, SELFPAY ==
[2025-03-09 12:35] VITALS: BP 134/90; PULSE 59; RESP 16; TEMP 36.7; O2SAT 99; BMI 29.8
--- NOTE | 2025-03-09 12:37 | XR_ITS ---
Examination: CT brain head without contrast. 2-D sagittal coronal reconstructions Date and time of exam: 03/09/2025, 12:53 p.m. INDICATION: Generalized headaches with tingling and numbness to the left arm COMPARISON: None CTDI: vol (mGy): 46.7 DLP: (mGycm): 967 Technique: Multiple CT axial sections of the brain have been obtained, 5 mm slice thickness. Contrast has not been administered. 2-D sagittal, coronal reconstructions have been obtained Low dose protocols were performed. One or more of the following dose reduction techniques were used; automated exposure control, adjustment of the mA and/or KV according to patient size, use of iterative reconstruction technique. Findings: No significant ventricular enlargement. Intra-axial or extra-axial hemorrhage density is not seen. No mass effect or midline shift Basal cisterns are not remarkable. Fourth ventricle is midline. Cranial vault intact. Right TMJ osteoarthrosis. Impression: Negative for acute hemorrhage, mass effect or midline shift. Right TMJ osteoarthrosis.
--- NOTE | 2025-03-09 12:38 | XR_ITS ---
CLINICAL INDICATION: Chest Pain with numbness on the left side, dizziness for 4 days TECHNIQUE: XR chest 2V Exam date and time: 03/09/2025, 12:59 p.m. COMPARISON: Chest radiographs 03/18/2023 FINDINGS: The cardiomediastinal silhouette is within normal limits. No airspace opacities suggestive of pneumonia. No mass detected. No pleural effusion or pneumothorax. No acute osseous abnormality detected. IMPRESSION: No radiographic evidence for acute cardiopulmonary abnormality. No significant interval change since the comparison study. - This report was generated utilizing speech recognition software. -
--- NOTE | 2025-03-09 12:39 | PD.EDRME ---
Rapid Medical Screening Exam RME Arrival date/time: 03/09/25 12:08 34-year-old female presents to the emergency department today for complaints of headache x 5 days as well as left arm numbness Chief Complaint: General Adult/Misc Complain Vital signs: Vital Signs Temperature 98.1 F 03/09/25 12:35 Pulse Rate 59 L 03/09/25 12:35 Respiratory Rate 16 03/09/25 12:35 Blood Pressure 134/90 H 03/09/25 12:35 Pulse Oximetry (%) 99 03/09/25 12:35 Oxygen Delivery Method Room Air 03/09/25 12:35 Vital signs reviewed by provider: Yes Exam: On exam patient well-appearing patient does not appear ill or toxic Patient has no abnormal neurological findings on initial exam Clinical Impression: Lab work imaging ordered
[2025-03-09 13:14] LABS: Basophils # (Auto) 0.1 Thou/mm3 (0.0-0.2); Basophils % (Auto) 1 % (0-2.5); Eosinophils # (Auto) 0.2 Thou/mm3 (0.0-0.5); Eosinophils % (Auto) 2 % (0-10); Hematocrit 41.6 % (36.0-46.0); Hemoglobin 13.9 g/dL (12.0-16.0); Immature Granulocytes Auto 0.02 Thou/mm3 (0.00-0.00); Lymphocytes # (Auto) 2.1 Thou/mm3 (1.0-4.8); Lymphocytes % (Auto) 22 % (10-50); Mean Corpuscular HGB Conc 33.4 g/dl (31.0-37.0); Mean Corpuscular Hemoglobin 29.3 pg (25.0-35.0); Mean Corpuscular Volume 88 fL (80-100); Monocytes # (Auto) 0.7 Thou/mm3 (0.0-0.8); Monocytes % (Auto) 8 % (0-12); Neutrophils # (Auto) 6.4 Thou/mm3 (1.8-7.7); Neutrophils % (Auto) 67 % (37-80); Nucleated Red Blood Cell # 0.00 Thou/mm3 (0.00-0.00); Nucleated Red Blood Cell % 0 /100 WBC (0); Platelet Count 349 Thou/mm3 (140-440); RDW Standard Deviation 39.0 fL (36.4-46.3); Red Blood Count 4.75 Miln/mm3 (4.00-5.20); White Blood Count 9.6 Thou/mm3 (3.6-11.0)
[2025-03-09 13:32] LABS: B-Type Natriuretic Peptide < 20 pg/mL (0-100); HCG,Qualitative Serum Negative
[2025-03-09 13:33] LABS: Alanine Aminotransferase 17 U/L (10-49); Albumin, Serum 4.9 gm/dL (3.5-5.0); Albumin/Globulin Ratio 2.1 (1.2-2.2); Alkaline Phosphatase 48 U/L (46-116); Anion Gap 8 (7-16); Aspartate Amino Transferase 21 U/L (0-34); BUN/Creatinine Ratio 9 Ratio (12-20); Bilirubin,Total 0.6 mg/dL (0.3-1.2); Blood Urea Nitrogen 6 mg/dL (9-23); Calcium 9.6 mg/dL (8.3-10.6); Calcium (Corrected) 9.6 mg/dL (8.5-10.1); Carbon Dioxide 27.1 mMol/L (20.0-31.0); Chloride 103 mMol/L (98-107); Creatinine (Component) 0.7 mg/dL (0.6-1.3); Estimated Creatinine Clearance 105.6 mL/min (>60); Globulin 2.3 gm/dL (2.3-3.5); Glucose 105 mg/dL (74-106); Magnesium 1.9 mg/dL (1.6-2.6); Osmolality,Calculated 273 (275-295); Potassium 3.8 mMol/L (3.4-5.1); Sodium 138 mMol/L (136-145); Total Protein 7.2 gm/dL (5.7-8.2); Troponin I < 0.002 ng/mL (0.0-0.045); eGFR > 60 See Note
[2025-03-09 13:42] LABS: INR 1.0 (0.9-1.3); Partial Thromboplastin Time 30.2 Seconds (22.0-36.0); Prothrombin Time 10.8 Seconds (9.0-12.2)
[2025-03-09 14:03] LABS: Collection Type, Urine Clean Catch
[2025-03-09 15:03] LABS: Bilirubin,Urine Negative (Negative); Blood,Urine Negative (Negative); Clarity,Urine Clear (Clear/Hazy); Color,Urine Colorless (Lt Yel-Yel); Culture Indicated,Urine Not Indicated; Glucose, Urine Negative (Negative); Ketones,Urine Negative (Negative); Leukocyte Esterase,Urine Negative (Negative); Nitrite,Urine Negative (Negative); PH,Urine 6.5 (5.0-7.0); Protein,Urine Negative (Neg - Trace); RBC,Urine < 1 /hpf (0-3); Specific Gravity,Urine 1.004 (1.001-1.035); Squamous Epithelial Cell,Urine 1 /hpf (0-5); Urobilinogen,Urine Negative mg/dL (0.0-1.0); WBC,Urine 5 /hpf (0-5)
[2025-03-09 21:00] VITALS: BP 109/72; PULSE 61; RESP 16; TEMP 36.7; O2SAT 98
--- NOTE | 2025-03-09 21:12 | EDNOTE_ITS ---
ED General RME/HPI General Chief complaint: General Adult/Misc Complain Stated complaint: NUMBLESS ON L) SIDE, DIZZY X 4 DAYS Time Seen by Provider: 03/09/25 21:03 Arrival date/time: 03/09/25 12:08 CC: Headache with blurred vision and tingling down her left arm HPI onset 1 day ago. Patient has a history of migraines which started 4 days ago on sumatriptan and propranolol. Patient states she typically gets a migraine once a week. Patient is under a lot of stress secondary to family issues school and work. Patient denies nausea vomiting shortness of breath difficulty breathing chest pain painful urination or bloody urination. RME / HPI RME / HPI narrative: 03/09/25 12:08 34-year-old female presents to the emergency department today for complaints of headache x 5 days as well as left arm numbness Exam: On exam patient well-appearing patient does not appear ill or toxic Patient has no abnormal neurological findings on initial exam Impression: Lab work imaging ordered Related Data Home Medications ?Medication ?Instructions ?Recorded ?Confirmed cetirizine 10 mg capsule (Zyrtec) 10 mg PO QDAY PRN Al lergic Symptoms 02/06/23 11/20/24 docusate sodium 100 mg capsule 100 mg PO QDAY 04/08/24 11/20/24 (Stool Softener) Previous Rx's ?Medication ?Instructions ?Recorded docusate sodium 100 mg capsule 100 mg PO BID #40 caps 04/09/24 (Colace) hydrocodone 5 mg-acetaminophen 325 1 tab PO Q6H PRN pa in (scale score 04/09/24 mg tablet 7-10) #15 tabs sulfamethoxazole 800 1 tab PO BID #10 tabs mg-trimethoprim 160 mg tablet (Bactrim DS) meloxicam 7.5 mg tablet 7.5 mg PO BID 30 days #60 ta bs 08/26/24 hydrocodone 5 mg-acetaminophen 325 1 tab PO Q8H PRN pa in #20 tabs 11/20/24 mg tablet Allergies Allergy/AdvReac Type Severity Reaction Status Date / Time No Known Allergies Allergy Verified 03/09/25 12:10 Review of Systems Review of Systems Narrative Review of Systems: GEN: No fever, no chills, no weight loss EYES: No discharge, no visual changes, no pain HEENT: No ear pain, no congestion, no sore throat PULM: No shortness of breath, no cough, no congestion CV: No chest pain, no dyspnea on exertion, no palpitations GI: No nausea, no vomiting, no diarrhea, no pain, no constipation : No frequency, no urgency, no dysuria MUSC/SKEL: No joint pain, no back pain SKIN: No rash PSYCH: No hallucinations, no depression HEME/LYMPH: No easy bleeding or bruising tendencies NEURO: No weakness, + headache Past Medical History Past Medical History NEUROLOGIC: Positive Neurological Disorders and Migraine (takes medication otc); Negative Seizures CARDIAC: Negative Cardiac Disorders or Congestive Heart Failure RESPIRATORY: Positive Asthma (stable no medication needed); Negative Chronic Obstructive Pulmonary Disease (COPD) GASTROINTESTINAL: Positive Gastrointestinal Disorders and Gall Bladder Disease; Negative Hepatitis or Colorectal Cancer GENITOURINARY: Positive Genitourinary Disorders (kidney infections left side) and Kidney Stones (2020 passed on own, saw no further tx); Negative Renal Disease or Prostate Cancer REPRODUCTIVE: Positive Previous Pregnancies (x4, x3 live births, x1 csection, x2 vaginal births); Negative Breast Cancer, Endometriosis, Pelvic Inflammatory Disease, Testicular Cancer or Uterine Prolapse MUSCULOSKELETAL: Positive Musculoskeletal Disorders (carpal tunnel) and Fractures (2011 disslocation of right knee); Negative Bone Cancer or Gout ENDOCRINE: Negative Endocrine Disorders, Diabetes Mellitus Type 1 or Diabetes Mellitus Type 2 HEMATOLOGIC: Negative Blood Disorders or Anemia OTHER HISTORY: Positive Hospitalization (11 yr old dislocated knee); Negative Autoimmune Disease, Down Syndrome, Developmental Delay, Shingles, Falls, Blood Transfusions, Blood Transfusion Reaction, Anesthesia Reactions, Organ Transplant, Chemotherapy, Radiation Therapy, Hyperbaric Therapy, MRSA, VRSA, Vancomycin-Resistant Enterococci, Human Immunodeficiency Virus (HIV), Chicken Pox, Measles, Mumps, Rubella (Wol[place] Measles), Pertussis, Clostridium Difficile, Cancer, Breast Cancer, Cervical Cancer, Colorectal Cancer, Lung Cancer, Ovarian Cancer, Prostate Cancer or Testicular Cancer Family History FAMILY HISTORY: Positive Family Cardiac Disorders, Family Cancer and Family Surgery; Negative Family Psychiatric Problems, Family Respiratory Disorders, Family Gastrointestinal Problems or Family Anesthesia Reaction Surgical History SURGICAL: Positive Tubal Ligation and Section; Negative Organ Transplant Social History SMOKING STATUS: Never smoker SECOND HAND EXPOSURE: No ED Exam Narrative Physical exam: [General: Not in any acute distress Head normocephalic HEENT: Eyes pupils are PERRLA EOMs are intact mouth pink moist membranes uvula is midline swallow symmetrical phonation is normal. All of the subsystems HEENT are within acceptable limits Neck is supple nontender Chest equal chest rise nontender to palpation Respiratory: Clear to auscultation no wheezes crackles or rubs CV: Rate rhythm is regular no murmurs rubs or clicks Abdomen is soft nontender no masses positive bowel sounds all 4 quadrants Back: No CVA tenderness no spinous process tenderness from cervical spine thoracic and lumbar spine Skin: Intact no petechiae rash induration ulceration or crepitus Extremities: Moving all extremity against resistance cap refill less than 2 seconds neurosensory intact Neuro: Awake alert oriented x3 Glascow coma 15 no focal deficits] Course Quality Measures none Orders Category Date Time Status EKG (ED ONLY) *Do not use* NOW Care 03/09/25 12:[address] head/brain wo con Stat Exams 03/09/25 12:37 Completed EKG (ED Only) Stat Exams 03/09/25 12:38 Ordered XR chest 2V Stat Exams 03/09/25 12:38 Completed B-Type Natriuretic Peptide Stat Lab 03/09/25 12:58 Completed CBC Stat Lab 03/09/25 12:58 Completed Comprehensive Metabolic Panel Stat Lab 03/09/25 12:58 Completed HCG,Qualitative Serum Stat Lab 03/09/25 12:58 Completed Magnesium Stat Lab 03/09/25 12:58 Completed Partial Thromboplastin Time Stat Lab 03/09/25 12:58 Completed Prothrombin Time with INR Stat Lab 03/09/25 12:58 Completed Troponin I Stat Lab 03/09/25 12:58 Completed Urinalysis, C/S if Indicated Stat Lab 03/09/25 12:40 Completed DiphenhydrAMINE INJ [Benadryl Inj] Med 03/09/25 21:11 Once 50 mg IM X1 ONE Ketorolac Inj [Toradol Inj] Med 03/09/25 21:11 Once 30 mg IM X1 ONE Prochlorperazine Inj [Compazine Inj] Med 03/09/25 21:11 Once 10 mg IM X1 ONE Vital Signs Vital signs: Vital Signs Temperature 98.1 F 03/09/25 12:35 Pulse Rate 59 L 03/09/25 12:35 Respiratory Rate 16 03/09/25 12:35 Blood Pressure 134/90 H 03/09/25 12:35 Pulse Oximetry (%) 99 03/09/25 12:35 Oxygen Delivery Method Room Air 03/09/25 12:35 Discharge Plan Plan Patient Disposition: HOME (Self Care) Patient condition on transfer: Stable Prescriptions/Referrals Prescriptions/Med Rec: No Action Zyrtec 10 mg capsule 10 mg PO QDAY PRN (Reason: Allergic Symptoms) meloxicam 7.5 mg tablet 7.5 mg PO BID 30 Days Qty: 60 1RF sulfamethoxazole-trimethoprim [Bactrim DS] 800-160 mg tablet 1 tab PO BID Qty: 10 0RF hydrocodone-acetaminophen 5-325 mg tablet 1 tab PO Q8H MDD 3 PRN (Reason: pain) Qty: 20 0RF docusate sodium [Stool Softener] 100 mg Capsule 100 mg PO QDAY docusate sodium [Colace] 100 mg capsule 100 mg PO BID Qty: 40 0RF hydrocodone-acetaminophen 5-325 mg tablet 1 tab PO Q6H MDD 4 PRN (Reason: pain (scale score 7-10)) Qty: 15 0RF Referrals: Lucy Sheffield MD [Primary Care Provider] - In 1 week Problem List Clinical Impression: Migraine headache Patient/Caregiver Discharge Instructions Education Materials: Headaches Migraine & Tension, Headache Migraine Triggers Prevent Additional Instructions: Continue take the medications prescribed by your PCP. Follow-up with a PCP if the migraines persist consider other medications or refer to a neurologist. Print Language: Brazilian Stand Alone Forms: Tiana Award Info., Work/School Release, Patient Portal Info Letter PA/STEVEDORE HOLD Supervising Physician PA/STEVEDORE HOLD Supervising Physician: Jaycob Mims ENP [facility] Clinical Information Provided by: patient Medical Records reviewed [facility] Meds/Rx considered, not ordered None Labs/Rad/Tests considered, not ordered None Chronic Illness/Social Conditions Explain: Migraines EKG Interpretation EKG #1: EKG Interpretation: EKG performed at 1241 shows a ventricular rate of 62 TX interval 145 QRS of 86 QTc of 440 this is sinus rhythm. Labs Lab(s) Interpretation(s): CBC shows no acute leukocytosis anemia thrombocytopenia CMP shows no significant electrolyte imbalances renal impairment transaminitis or T. bili elevation Coags within acceptable limits Troponin BMP within acceptable limits. Urine is negative for UTI UDS is negative Chest x-ray is negative for any acute finding Head CT is unremarkable as interpreted by me read by radiology. Imaging Imaging interpretation: interpreted by me Imaging Interpretation(s): See above Medication Administration(s) Medication Administration History Diphenhydramine HCl (Diphenhydramine Inj 50 Mg/Ml Vial) 50 mg IM X1 ONE Stop: 03/09/25 21:12 Ketorolac Tromethamine (Ketorolac Inj 30 Mg/Ml Vial) 30 mg IM X1 ONE Stop: 03/09/25 21:12 Prochlorperazine Edisylate (Prochlorperazine Inj 5 Mg/Ml Vial 2 Ml) 10 mg IM X1 ONE; Protocol Stop: 03/09/25 21:12 Diagnosis Differential Diagnosis ED Complaint MDM: Complex migraine classic migraine [place] headache
[2025-03-09] MEDS: KETOROLAC INJ 30 MG/ML VIAL IM (21:33)
[2025-03-09] MEDS: PROCHLORPERAZINE INJ 5 MG/ML VIAL 2 ML 10 MG IM (21:33)
--- NOTE | 2025-03-30 | XR_ITS ---
Examination: Left elbow 3 views Technique: Elbow AP, oblique, lateral 3 views Exam date and time: March 30, 2025, 1101 hours INDICATIONS: Left elbow pain beginning 2 weeks ago FINDINGS: No fracture or dislocation. No arthritic change. No elbow effusion IMPRESSION: Negative for osseous abnormality.
== END 2025-03-09 21:46 | disposition home or self-care (01) ==
PROVIDERS: Nurse Practitioner Primary Care; Emergency Provider Emergency Medicine; PCP Obstetrics & Gynecology
DX: G43.909 Migraine, unspecified, not intractable, without status migrainosus (principal)
CPT/HCPCS: 36415; 70450; 71046; 73080; 80053; 81001; 83735; 83880; 84484; 84703; 85025; 85610; 85730; 93005; 96372; 99284; J0780; J1200; J1885

== ENCOUNTER 2025-04-13 15:02 | Outpatient (AMB) | payer MEDICAID, SELFPAY ==
[2025-04-13 15:04] VITALS: BP 131/87; PULSE 87; RESP 18; TEMP 36.4; O2SAT 98; BMI 29.9
--- NOTE | 2025-04-13 15:04 | PD.ORTHCLVIS ---
Vital signs 04/13/25 15:04 Height 1.57 m Height Method Measured Weight 74.106 kg Weight Measurement Method Standing Scale BMI 29.9 BP 131/87 H Blood Pressure Source Automatic Cuff Blood Pressure Location Left Upper Arm Position Sitting Respiration 18 Pulse 87 Pulse Source Monitor Temp 97.5 F Temp Source Temporal Artery Scan Pulse Oximetry (%) 98 Oxygen Delivery Method Room Air Med/Allergies Allergies & Medications Allergies No Known Allergies Allergy (Verified 04/13/25 15:05) Medication Reconciliation cetirizine 10 mg capsule (Zyrtec) 10 mg PO QDAY PRN Allergic Symptoms 02/06/23 [History Confirmed 04/13/25] docusate sodium 100 mg capsule (Stool Softener) 100 mg PO QDAY 04/08/24 [History Confirmed 04/13/25] docusate sodium 100 mg capsule (Colace) 100 mg PO BID #40 caps 04/09/24 [Rx Confirmed 04/13/25] hydrocodone 5 mg-acetaminophen 325 mg tablet 1 tab PO Q6H PRN pain (scale score 7-10) #15 tabs 04/09/24 [Rx Confirmed 04/13/25] sulfamethoxazole 800 mg-trimethoprim 160 mg tablet (Bactrim DS) 1 tab PO BID #10 tabs 07/03/24 [Rx Confirmed 04/13/25] meloxicam 7.5 mg tablet 7.5 mg PO BID 30 days #60 tabs 08/26/24 [Rx Confirmed 04/13/25] hydrocodone 5 mg-acetaminophen 325 mg tablet 1 tab PO Q8H PRN pain #20 tabs 11/20/24 [Rx Confirmed 04/13/25] Exam Exam Patient is in no acute distress and is cooperative with the examination today. Patient has a normal mood and affect. Breathing is nonlabored. In no respiratory distress. Bilateral extremities were evaluated and demonstrates sensation intact to light touch. Palpable radial pulses. TTP over the medial condyle. ROM of elbow is full Assessment and Plan Problem List (1) Elbow tendonitis: Status: Acute Plan: 34 yo female with left elbow pain and medial elbow pain. TTP medially. - plan for xray - likely NSAIDS, and home exercises Office Procedures GNS Level of Care Nursing/Assessment Patient Status: Established Patient Nursing Assessment/Reassesment: Medication Reconciliation, Update PMH in EMR and Vital Signs Coordination of Care: Complex Care and Chronic Disease 1-5, Education Complex Pt/Fam, Consent,records obtained, informed consent, Lab and Imaging orders, Results/Orders obtained and Staff clarify orders Established Patient Charge Established Patient Point Assignment: 110 Established Patient Point Charge: EP Level 3 (80-115) MA Intake Visit Data Collection New Patient or Established: Established Patient (seen at [facility] within 3 years) Reason for Visit:: XRAY ORDER Seen by Clinical Staff ONLY (RN/MA): No Technician Inventory Specialist Required: No PCP or OBGYN visit in last 3 months: Yes Hx Now: No Do You Feel Safe at Home: Yes Authorities Contacted: N/A Questionairres Past Medical History Past Medical History Have you ever been diagnosed with any of the following: Neurological Problems Seizures: No Migraine: Yes (takes medication otc) Cardiology Problems Congestive Heart Failure: No Respiratory Problems Chronic Obstructive Pulmonary Disease (COPD): No Asthma: Yes (stable no medication needed) Stomache/Intestinal Problems Hepatitis: No Gall Bladder Disease: Yes Colorectal Cancer: No Genital/Urinary Problems Renal Disease: No Kidney Stones: Yes (2020 passed on own, saw no further tx) Reproductive Problems Breast Cancer: No Endometriosis: No Pelvic Inflammatory Disease: No Previous Pregnancies: Yes (x4, x3 live births, x1 csection, x2 vaginal births) Uterine Prolapse: No Musculoskeletal Problems Bone Cancer: No Gout: No Fractures: Yes (2011 disslocation of right knee) Endocrine Problems Diabetes Mellitus Type 1: No Diabetes Mellitus Type 2: No Blood Problems Anemia: No Other Problems Hospitalization: Yes (11 yr old dislocated knee) Down Syndrome: No Developmental Delay: No Shingles: No Falls: No Blood Transfusions: No Blood Transfusion Reaction: No Anesthesia Reactions: No Organ Transplant: No Chemotherapy: No Radiation Therapy: No Hyperbaric Therapy: No MRSA: No VRSA: No Vancomycin-Resistant Enterococci: No Human Immunodeficiency Virus (HIV): No Chicken Pox: No Measles: No Mumps: No Rubella ([place] Measles): No Pertussis: No Clostridium Difficile: No Cancer: No Cervical Cancer: No Lung Cancer: No Ovarian Cancer: No Subjective Visit Visit for: follow up visit and knee Immunization / Flu Flu Vaccine in the Last 12 Months: Yes Flu Vaccine Exclusion Criteria: Already Received History of Present Illness Chief complaint: XRAY ORDER 34yo female with left elbow pain for 2 days. There has been no increase in activity. Personal History Occupation: HR REPRESENTATIVE Red flag PMH: none Pain Pain level (0-10): 2 Associated signs & symptoms: none Ambulatory data Ambulatory device: none Treatments Number of previous injections: 0 Improvement with previous injections: No Number of Physical Therapy sessions: 0 Improvement with PT: No Improvement with NSAIDS: no Review of Systems Review of Systems: All systems negative unless otherwise noted in HPI.
== END 2025-04-13 15:22 | disposition home or self-care (01) ==
LOC: HODSRG 15:02
PROVIDERS: Supervising Provider Orthopaedic Surgery Adult Reconstructive Orthopaedic Surgery; Visit Provider Orthopaedic Surgery Adult Reconstructive Orthopaedic Surgery
DX: M77.8 Other enthesopathies, not elsewhere classified (principal); M25.522 Pain in left elbow
CPT/HCPCS: 99213; G0463